=== PATIENT | female | born 1950 | race Two or more races ===

== ENCOUNTER → 2019-03-13 | Emergency (ER) | payer OTHER ==
[~2019-03-13] VITALS: Ht 162.6 cm; Wt 63.5 kg
== END | disposition home or self-care (01) ==
LOC: ER 04:51
DX: D25.1 Intramural leiomyoma of uterus (principal); I70.0 Atherosclerosis of aorta; R10.31 Right lower quadrant pain

== ENCOUNTER 2020-01-25 13:48 | Emergency (ER) | payer OTHER ==
[~2020-01-25] VITALS: Ht 167.6 cm; Wt 63.5 kg
[2020-01-25] MEDS ORDERED: ROSUVASTATIN CA10 MG (14:26)
[2020-01-25] MEDS ORDERED: TOPROL XL50 MG (14:27)
[2020-01-25] MEDS ORDERED: AVAPRO150 MG (14:27)
== END 2020-01-25 20:13 | disposition home or self-care (01) ==
LOC: ER 13:48
DX: K57.90 Diverticulosis of intestine, part unspecified, without perforation or abscess without bleeding (principal); M54.31 Sciatica, right side; R10.31 Right lower quadrant pain

== ENCOUNTER 2022-01-28 14:21 | Emergency (ER) | payer OTHER ==
[~2022-01-28] VITALS: Ht 157.5 cm; Wt 63.5 kg
[~2022-01-28 14:21] MED LIST: AVAPRO150 MG; ROSUVASTATIN CA10 MG; TOPROL XL50 MG
[2022-01-28] MEDS ORDERED: FOSAMAX70 MG PO (14:49)
[2022-01-28] MEDS ORDERED: IRBESARTAN-HCT1 EACH PO (14:49)
[2022-01-28] MEDS ORDERED: CIPRO500 MG PO (19:43)
== END 2022-01-28 20:44 | disposition home or self-care (01) ==
LOC: ER 14:21
DX: U07.1 COVID-19 (principal); N39.0 Urinary tract infection, site not specified; R42 Dizziness and giddiness; Z88.0 Allergy status to penicillin; I10 Essential (primary) hypertension